=== PATIENT | female | born 1970 | race Caucasian/White ===

== ENCOUNTER → 2016-11-27 | Outpatient (CLI) | payer SELFPAY ==
--- NOTE | 2016-11-29 13:39 | MAM ---
History: Well woman exam. Date of exam: 11/27/2016 Services provided: Bilateral full field digital screening mammography. CAD, the images were reviewed with R2 computer aided detection. FINDINGS: Glandular tissue is scattered glandular contour with increased mammographic density. No prior exam for comparison is currently available. No dominant mass, architectural distortion or clustered microcalcification. IMPRESSION: Benign exam Recommendation: Routine annual mammography BIRAD CATEGORY: 2 BENIGN Electronically signed by: Keke Panchal MD 11/29/2016 1:39 PM CDT Workstation: [id number]
== END ==
LOC: MAMMO 16:44
PROVIDERS: ATTEND Family Medicine
DX: Z12.31 Encounter for screening mammogram for malignant neoplasm of breast (principal)

== ENCOUNTER 2018-10-04 11:27 | Emergency (ER) | payer OTHER ==
[2018-10-04 11:35] VITALS: TEMP 97.9
--- NOTE | 2018-10-04 11:41 | ED.PDOC ---
History of Present Illness - General Chief Complaint: Chest Pain/ME Stated Complaint: chest discomfort Time Seen by Provider: 10/04/18 11:39 Source: patient Exam Limitations: no limitations - History of Present Illness Initial Comments: Prachi Juarez 48 y/o female stated on waking up this AM felt left sided chest discomfort and heaviness got cold and clammy the dizzy and light headed also noted her blood pressure been elevated.No previous history of heart disease.Has HBP. Timing/Duration: 4-6 hours Severity: moderate Location: other - left side chest Activities at Onset: none Prior Chest Pain/Cardiac Workup: no prior chest pain, no prior cardiac workup Improving Factors: nothing Worsening Factors: nothing Nitro Today/Relief: no nitro taken today, 0.4 mg x 1, provided by ED Aspirin Treatment Today: 81 mg x 4, provided by ED Associated Symptoms: other - see hpi Allergies/Adverse Reactions: Allergies Penicillins Allergy (Verified 09/11/15 17:15) Sulfa Antibiotics Allergy (Verified 09/11/15 17:15) Home Medications: Ambulatory Orders Albuterol Sulfate Nebs [Proventil Nebs] 2.5 mg INH AC #50 vial 09/11/15 Olmesartan Medoxomil [Benicar] 20 mg PO DAILY 10/04/18 Turmeric (Curcuma Longa) [Turmeric] 500 mg PO DAILY 10/04/18 Review of Systems - Review of Systems Constitutional: States: no symptoms reported EENTM: States: no symptoms reported Respiratory: States: no symptoms reported Cardiology: States: no symptoms reported Gastrointestinal/Abdominal: States: no symptoms reported Genitourinary: States: no symptoms reported Musculoskeletal: States: no symptoms reported Skin: States: no symptoms reported Neurological: States: no symptoms reported Endocrine: States: no symptoms reported All other Systems: Reviewed and Negative, No Change from Baseline Past Medical History (General) - Patient Medical History Hx Seizures: No Hx Stroke: No Hx Asthma: Yes Hx of COPD: No Hx Congestive Heart Failure: No Hx Hypertension: Yes Hx Thyroid Disease: No Hx Diabetes: No Surgical History: appendectomy, other - BTL - Vaccination History Hx Influenza Vaccination: No - Social History Hx Tobacco Use: No Hx Alcohol Use: No Hx Substance Use: No Hx Substance Use Treatment: No Hx Physical Abuse: No Hx Emotional Abuse: No - Female History Patient is a Female of Child Bearing Age (10 -59 yrs old): Yes Hx Last Menstrual Period: 10/02/18 Patient : No Family Medical History - Family History Mother Family History: Unknown Living Status: Still Living Hx Family Hypertension: Yes Hx Cardiac Disease: Yes - dad Hx Family;Other: dementia Physical Exam - Physical Exam General Appearance: Alert, Comfortable, No apparent distress Eyes, Ears, Nose, Throat Exam: normal ENT inspection, pharynx normal Neck: non-tender, full range of motion, supple, normal inspection Respiratory: chest non-tender, lungs clear, normal breath sounds Cardiovascular/Chest: normal peripheral pulses, regular rate, rhythm, no murmur Peripheral Pulses: radial,right: 2+, radial,left: 2+ Gastrointestinal/Abdominal: normal bowel sounds, non tender, soft, no o rganomegaly Extremity: no pedal edema, no calf tenderness Neurologic: alert, oriented x 3 Skin Exam: normal color, warm/dry Progress - Progress Progress: 10/04/18 12:41 Last Vital Signs Temp 97.9 F 10/04/18 11:30 Pulse 68 10/04/18 12:16 Resp 13 10/04/18 12:16 BP 124/77 10/04/18 12:16 Pulse Ox 98 10/04/18 12:16 - Results/Orders Results/Orders: 10/04/18 11:41 IV Care:Saline Lock per Protoc QSHIFT 10/04/18 12:42 Chest,1 View [RAD] Stat Laboratory Results - last 24 hr 10/04/18 10/04/18 10/04/18 11:40 11:41 12:25 WBC 6.5 RBC 4.91 Hgb 14.8 Hct 44.3 MCV 90.3 MCH 30.1 MCHC 33.4 RDW 13.6 Plt Count 204 MPV 9.6 Absolute Neuts (auto) 4.20 Absolute Lymphs (auto) 1.40 Absolute Monos (auto) 0.60 Absolute Eos (auto) 0.20 Absolute Basos (auto) 0.10 Neutrophils % 65.5 Lymphocytes % 21.7 Monocytes % 9.3 H Eosinophils % 2.5 Basophils % 1.0 PT 10.5 INR 1.05 PTT (SP) 23.6 Sodium 137 Potassium 3.5 L Chloride 103 Carbon Dioxide 26 Anion Gap 11.5 L BUN 9 Creatinine 0.61 BUN/Creatinine Ratio 14.8 Random Glucose 114 H Serum Osmolality 273.4 L Calcium 9.3 Magnesium 2.0 Total Bilirubin 0.5 Direct Bilirubin < 0.1 Indirect Bilirubin 0.4 AST 27 ALT 26 Alkaline Phosphatase 59 Creatine Kinase 75 CK-MB (CK-2) 0.9 CK-MB (CK-2) % Not Reportable Troponin I < 0.02 Serum Total Protein 7.2 Albumin 4.0 Urine Color Yellow Urine Appearance Clear Urine pH 7.5 Ur Specific [place] 1.020 Urine Protein Negative Urine Glucose (UA) Negative Urine Ketones Negative Urine Blood Negative Urine Nitrite Negative Urine Bilirubin Negative Urine Urobilinogen 0.2 Ur Leukocyte Esterase Negative Urine RBC 0 Urine WBC 0 Ur Epithelial Cells 5-10 Urine Bacteria Rare Urine Opiates Screen Negative Urine Barbiturates Negative Ur Phencyclidine Scrn Negative U Amphetamin/Meth Scrn Negative U Benzodiazepines Scrn Negative U Cocaine Metab Screen Negative U Cannabinoids Screen Negative 10/04/18 13:54 WBC RBC Hgb Hct MCV MCH MCHC RDW Plt Count MPV Absolute Neuts (auto) Absolute Lymphs (auto) Absolute Monos (auto) Absolute Eos (auto) Absolute Basos (auto) Neutrophils % Lymphocytes % Monocytes % Eosinophils % Basophils % PT INR PTT (SP) Sodium Potassium Chloride Carbon Dioxide Anion Gap BUN Creatinine BUN/Creatinine Ratio Random Glucose Serum Osmolality Calcium Magnesium Total Bilirubin Direct Bilirubin Indirect Bilirubin AST ALT Alkaline Phosphatase Creatine Kinase CK-MB (CK-2) CK-MB (CK-2) % Troponin I < 0.02 Serum Total Protein Albumin Urine Color Urine Appearance Urine pH Ur Specific [place] Urine Protein Urine Glucose (UA) Urine Ketones Urine Blood Urine Nitrite Urine Bilirubin Urine Urobilinogen Ur Leukocyte Esterase Urine RBC Urine WBC Ur Epithelial Cells Urine Bacteria Urine Opiates Screen Urine Barbiturates Ur Phencyclidine Scrn U Amphetamin/Meth Scrn U Benzodiazepines Scrn U Cocaine Metab Screen U Cannabinoids Screen Discuss all test result with patient that no laboratory,radiographic,or EKG findings of acute myocardial injury at the time exam was done recommended hospital observation but patient wants to follow up with her primary Md instead.Stated no chest pain symptoms/discomfort/pressure. - EKG/XRAY/CT EKG: Sinus, no ST T wave changes Comments: NSR HR-67 Departure - Departure Clinical Impression: Chest discomfort Time of Disposition: 14:33 Disposition: Discharge to Home or Self Care Condition: Fair Departure Forms: ED Discharge - Pt. Copy, Patient Portal Self Enrollment Instructions: DI for Chest Pain Referrals: Jocelyne Bueno NP [Primary Care Provider] - 1-2 Weeks Home Medications: Ambulatory Orders Albuterol Sulfate Nebs [Proventil Nebs] 2.5 mg INH AC #50 vial 09/11/15 Olmesartan Medoxomil [Benicar] 20 mg PO DAILY 10/04/18 Turmeric (Curcuma Longa) [Turmeric] 500 mg PO DAILY 10/04/18 Additional Instructions: Continue with Baby Aspirin-81 mg daily;follow up with primary Md Dr. Stapleton for recheck and further evaluation;Return to ER as needed
[2018-10-04] MEDS: ASPIRIN (CHEWABLE) 81 MG TAB PO ONE (11:49)
[2018-10-04] MEDS: NITROGLYCERIN 0.4 MG 25 EA TAB SL ONE (11:49)
[2018-10-04 12:17] VITALS: O2SAT 98
[2018-10-04 14:49] VITALS: BP 121/78
== END 2018-10-04 14:42 | disposition home or self-care (01) ==
LOC: ER 11:27
DX: R07.89 Other chest pain (principal); J45.909 Unspecified asthma, uncomplicated; I10 Essential (primary) hypertension; Z79.899 Other long term (current) drug therapy; Z88.0 Allergy status to penicillin; Z88.2 Allergy status to sulfonamides

== ENCOUNTER 2018-10-11 20:03 | Emergency (ER) | payer OTHER ==
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
[2018-10-11] MEDS: MORPHINE SULFATE INJ 10 MG/ML VIAL IV ONE (22:07)
[2018-10-11] MEDS: SODIUM CHLORIDE 0.9% 1000ML 500 ML IVS ONE (22:07)
[2018-10-11] MEDS: ASPIRIN (CHEWABLE) 81 MG TAB PO ONE (22:08)
[2018-10-11] MEDS: ONDANSETRON INJ 4 MG/2 ML VIAL IV ONE (22:08)
--- NOTE | 2018-10-11 22:16 | RAD ---
EXAM DESCRIPTION: Chest,1 View CLINICAL HISTORY: chest pain COMPARISON: Chest radiograph dated October 04, 2018 TECHNIQUE: Single upright portable AP view of the chest FINDINGS: Cardiac silhouette shows normal heart size. Pulmonary vascularity is within normal limits. Lungs show no confluent infiltrates. Costophrenic angles are sharp. There is no pneumothorax. No acute osseous abnormality. IMPRESSION: No acute cardiopulmonary process. Electronically signed by: Shemar Post MD 10/11/2018 10:13 PM CDT
[2018-10-12] MEDS: MORPHINE SULFATE INJ 10 MG/ML VIAL IV ONE (00:27)
[2018-10-12] MEDS: NITROGLYCERIN 0.4 MG 25 EA TAB SL PRN (00:27)
[2018-10-12 06:17] VITALS: BP 120/80; TEMP 98.4; O2SAT 100
== END 2018-10-12 06:10 | disposition home or self-care (01) ==
LOC: ER 20:03
DX: R07.89 Other chest pain (principal); F41.9 Anxiety disorder, unspecified; R11.2 Nausea with vomiting, unspecified; R06.02 Shortness of breath; I10 Essential (primary) hypertension; J45.909 Unspecified asthma, uncomplicated; Z79.899 Other long term (current) drug therapy; Z88.0 Allergy status to penicillin; Z88.2 Allergy status to sulfonamides
CPT/HCPCS: 71045; 80048; 82550; 82553; 84484; 85025; 85379; 85610; 85730; 93005; J2060; J2270; J2405; J7030

== ENCOUNTER 2019-02-03 08:54 | Emergency (ER) | payer OTHER ==
[2019-02-03 09:22] VITALS: TEMP 99
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
[2019-02-03 10:35] VITALS: BP 144/91; O2SAT 97
== END 2019-02-03 10:15 | disposition home or self-care (01) ==
LOC: ER 08:54
DX: S70.12XA Contusion of left thigh, initial encounter (principal); S80.02XA Contusion of left knee, initial encounter; S80.12XA Contusion of left lower leg, initial encounter; S50.11XA Contusion of right forearm, initial encounter; I10 Essential (primary) hypertension; J45.909 Unspecified asthma, uncomplicated; Z79.899 Other long term (current) drug therapy; Y04.2XXA Assault by strike against or bumped into by another person, initial encounter; Y92.009 Unspecified place in unspecified non-institutional (private) residence as the place of occurrence of the external cause

== ENCOUNTER → 2020-07-05 | Outpatient (CLI) | payer OTHER | LOC: YCFC.O 15:57 | PROVIDERS: ATTEND Nurse Practitioner Family | DX: Z20.828 Contact with and (suspected) exposure to other viral communicable diseases (principal) ==

== ENCOUNTER → 2020-07-18 | Outpatient (CLI) | payer OTHER | LOC: GMALS 16:06 | PROVIDERS: ATTEND Nurse Practitioner Acute Care | DX: B37.3 Candidiasis of vulva and vagina (principal) ==